=== PATIENT | female | born 1990 | race Caucasian/White ===

== ENCOUNTER 2018-10-23 06:27 | Emergency (ER) | payer OTHER ==
[~2018-10-23] VITALS: Ht 170.2 cm; Wt 63.5 kg
[2018-10-23 06:46] VITALS: BP 131/91
== END 2018-10-23 07:24 | disposition home or self-care (01) ==
LOC: M.ERS 06:27
DX: R06.02 Shortness of breath (principal); J45.909 Unspecified asthma, uncomplicated; F31.9 Bipolar disorder, unspecified; F41.9 Anxiety disorder, unspecified